=== PATIENT | female | born 1935 | race Caucasian/White ===

== ENCOUNTER → 2016-05-26 | Outpatient (CLI) | payer MEDICARE, OTHER ==
--- NOTE | 2016-05-27 06:42 | HKNOTE ---
DATE OF SERVICE: 05/26/2016 The patient complains of pain in her left knee. She had a Monovisc injection into her right knee at her last visit in June 2015. She has had good relief of the pain since then. She now complains of pain in the left knee. The patient comes in with her daughter. PHYSICAL EXAMINATION: VITAL SIGNS: Height 5 foot 2, weight 130 pounds. Blood pressure 110/70, temperature 98.3. RIGHT KNEE: Remarkably a very good range of motion with quite severe crepitus. LEFT KNEE: The left knee shows normal alignment. Active and passive extension is 0 degrees. Active and passive flexion is 135 degrees. The medial and lateral collateral ligaments and cruciate ligamen ts are intact. José Miguel test is negative. There is no tenderness, scarring, or cysts. The patella tra cks normally. There is no tenderness on the articular surface of the patella or in the patellar groo ve. The Q angle is normal. There is 4+ crepitus in the knee, none in the patella. 1+ effusion. Pa in on forced flexion. IMAGING: Plain x-rays of the right knee obtained today show advanced degenerative osteoarthritis of the lateral compartment and patellofemoral joint. Imaging of the left knee shows moderate narrowing of the medial and lateral compartments of the knee . DIAGNOSES: 1. Severe degenerative osteoarthritis of the right knee. 2. Moderate degenerative osteoarthritis of the left knee. MANAGEMENT: Under sterile conditions, given injection of Monovisc into the left knee. She will be seen again as necessary for further evaluation and treatment. Dictated By: NABILA TRACY/ALLAN Conf#: [id number] DID#: [id number]
--- NOTE | 2016-05-27 09:36 | RADRPT ---
PROCEDURE: XR bilateral knees. CLINICAL INDICATION: Knee pain TECHNIQUE: AP weightbearing, lateral weightbearing and sunrise views are available for review. COMPARISON: 03/12/2015 FINDINGS: Right knee: There is moderate osteoarthrosis involving the right medial tibial femoral compartment, lateral tibi al femoral compartment and patellofemoral compartment.This is associated with joint space narrowing, subchondral sclerosis and osteophytosis. Left knee: There is mild osteoarthrosis involving the left medial tibial femoral compartment, lateral tibial fe moral compartment and patellofemoral compartment. This is associated with joint space narrowing, sub chondral sclerosis and osteophytosis. There is diffuse osteopenia. No fractures are identified. No osseous lesions are identified. The soft tissues are unremarkable. IMPRESSION: Moderate osteoarthrosis involving the right medial tibial femoral compartment, lateral tibial femora l compartment and patellofemoral compartment Mild osteoarthrosis involving the left medial tibial femoral compartment, lateral tibial femoral com partment and patellofemoral compartment. Diffuse osteopenia RPTAT: HG[facility] .Sage Ro MD, Date Time Electronically viewed and signed by .Sage Ro MD, on 05/27/2016 09:35 .B/
== END | disposition home or self-care (01) ==
LOC: HKI 15:32
DX: M25.562 Pain in left knee (principal); M17.0 Bilateral primary osteoarthritis of knee
CPT/HCPCS: 20610; 73562; G0463; J7327